=== PATIENT | female | born 1995 | race Caucasian/White ===

== ENCOUNTER 2022-10-22 10:11 | Emergency (ER) | payer MEDICAID ==
[~2022-10-22] VITALS: Ht 160 cm; Wt 86.2 kg
[2022-10-22 10:13] VITALS: BP 120/86
--- NOTE | 2022-10-22 10:23 | NUR ---
patient ambulated to bed 4 from triage
--- NOTE | 2022-10-22 10:49 | NUR ---
Ultrasound at bedside.
[2022-10-22 11:25] LABS: BASOPHILS % (AUTO) 0.7 % (0.0-2.0); EOSINOPHILS # (AUTO) 0.1 K/uL (0-0.4); HEMATOCRIT 38.6 % (36-48); LYMPHOCYTES # (AUTO) 2.2 K/uL (2.5-16.5); LYMPHOCYTES % (AUTO) 30.3 % (20.5-51.1); MEAN CORPUSCULAR HEMOGLOBIN 28 pg (27-31); MEAN CORPUSCULAR HGB CONC 34 g/dL (33-37); MEAN CORPUSCULAR VOLUME 83.9 fL (80-94); MONOCYTES # (AUTO) 0.4 K/uL (0.8-1.0); MONOCYTES % (AUTO) 6.2 % (1.7-9.3); NEUTROPHILS # (AUTO) 4.3 K/uL (1.8-7.7); NEUTROPHILS % (AUTO) 60.8 % (42.2-75.2); PLATELET COUNT (AUTO) 427 K/uL (140-450); RED CELL DISTRIBUTION WIDTH 14.5 % (11.6-13.7); WHITE BLOOD COUNT (AUTO) 7.2 K/uL (4.8-10.8)
[2022-10-22 11:56] LABS: APPEARANCE,URINE CLEAR (CLEAR); BILIRUBIN,URINE NEGATIVE (NEGATIVE); BLOOD, URINE 1+ (NEGATIVE); COLOR,URINE YELLOW (YELLOW); LEUKOCYTE ESTERASE ,URINE NEGATIVE (NEGATIVE); NITRITE, URINE NEGATIVE (NEGATIVE); UGLUCOSE NEGATIVE (NEGATIVE)
[2022-10-22 11:57] LABS: ALBUMIN 3.8 g/dL (3.4-5.0); CARBON DIOXIDE 28.9 mmol/L (21-32); CREATININE 0.6 mg/dL (0.6-1.3); POTASSIUM 3.9 mmol/L (3.5-5.1); TOTAL BILIRUBIN 0.4 mg/dL (0.0-1.0)
[2022-10-22] MEDS ORDERED: NITR100C7 PO (13:14)
[2022-10-22 13:25] VITALS: BP 122/84
== END 2022-10-22 13:25 | disposition home or self-care (01) ==
LOC: MED 10:11
DX: N39.0 Urinary tract infection, site not specified (principal); R10.2 Pelvic and perineal pain; Z90.49 Acquired absence of other specified parts of digestive tract; Z79.899 Other long term (current) drug therapy
CPT/HCPCS: 36415; 76856; 80053; 81001; 81025; 83690; 85025; 87086; 87210; 87491; 99284; Q0092

== ENCOUNTER 2023-04-30 16:33 | Emergency (ER) | payer MEDICAID ==
[~2023-04-30] VITALS: Ht 160 cm; Wt 85.3 kg
[~2023-04-30 16:33] MED LIST: NITR100C7 PO
[2023-04-30 17:04] VITALS: BP 119/67; PULSE 86; RESP 17; TEMP 98.2; O2SAT 99
[2023-04-30] MEDS ORDERED: IBUP-1842 PO (19:07)
[2023-04-30] MEDS ORDERED: ACET-10509 PO (19:07)
[2023-04-30] MEDS ORDERED: BENZ200C4 PO (19:07)
[2023-04-30 19:57] VITALS: BP 129/62; PULSE 70; RESP 16; O2SAT 100
[2023-04-30 19:57] LABS: FLU A ANTIGEN negative (NEGATIVE); FLU B ANTIGEN NEGATIVE (NEGATIVE)
[2023-04-30] MEDS ORDERED: ACETAMINOPHEN EXTRA STRENGTH 500 MG TAB PO ONE (20:10)
[2023-04-30 20:20] LABS: BILIRUBIN,URINE NEGATIVE (NEGATIVE); BLOOD, URINE TRACE-I (NEGATIVE); COLOR,URINE YELLOW (YELLOW); LEUKOCYTE ESTERASE ,URINE NEGATIVE (NEGATIVE); NITRITE, URINE NEGATIVE (NEGATIVE); PROTEIN,URINE NEGATIVE (NEGATIVE); UGLUCOSE NEGATIVE (NEGATIVE); UROBILINOGEN,URINE 0.2 EU/dL (0.2 - 1)
[2023-04-30 20:21] LABS: APPEARANCE,URINE SLIGHTLY CLOUDY (CLEAR)
[2023-04-30] MEDS ORDERED: CEPH250C16 PO (20:23)
[2023-04-30 20:32] LABS: BACTERIA,URINE 10-30 (MOD) /HPF (None Seen); MUCUS,URINE 1+ /LPF (None Seen); SQUAMOUS EPITHELIAL CELL,UR 4-10 (MOD) /LPF (0-3 (FEW)); WBC,URINE 0-5 /HPF (0-5)
== END 2023-04-30 20:31 | disposition home or self-care (01) ==
LOC: MED 16:33
DX: J06.9 Acute upper respiratory infection, unspecified (principal); Z20.822 Contact with and (suspected) exposure to COVID-19; R35.0 Frequency of micturition; Z79.899 Other long term (current) drug therapy; Z79.1 Long term (current) use of non-steroidal anti-inflammatories (NSAID); Z79.2 Long term (current) use of antibiotics
CPT/HCPCS: 71045; 81001; 87086; 99284

== ENCOUNTER 2023-11-21 20:54 | Emergency (ER) | payer MEDICAID, OTHER ==
[~2023-11-21] VITALS: Ht 162.6 cm; Wt 81.2 kg
[~2023-11-21 20:54] MED LIST changes: +ACET-10509 PO; +BENZ200C4 PO; +CEPH250C16 PO; +IBUP-1842 PO
[2023-11-21 21:36] VITALS: BP 141/73; PULSE 83; RESP 14; TEMP 97.1; O2SAT 99
[2023-11-21 22:02] LABS: APPEARANCE,URINE CLEAR (CLEAR); BILIRUBIN,URINE NEGATIVE (NEGATIVE); BLOOD, URINE 2+ (NEGATIVE); COLOR,URINE YELLOW (YELLOW); LEUKOCYTE ESTERASE ,URINE NEGATIVE (NEGATIVE); NITRITE, URINE NEGATIVE (NEGATIVE); PROTEIN,URINE NEGATIVE (NEGATIVE); UGLUCOSE NEGATIVE (NEGATIVE); UROBILINOGEN,URINE 0.2 EU/dL (0.2 - 1)
== END 2023-11-21 22:38 | disposition left against medical advice (07) ==
LOC: MED 20:54
DX: R42 Dizziness and giddiness (principal); R55 Syncope and collapse; R11.0 Nausea; R51.9 Headache, unspecified; Z79.1 Long term (current) use of non-steroidal anti-inflammatories (NSAID); Z79.2 Long term (current) use of antibiotics; Z79.899 Other long term (current) drug therapy
CPT/HCPCS: 81003; 81025; 99283